=== PATIENT | male | born 1970 | race Caucasian/White ===

== ENCOUNTER 2019-03-31 20:02 | Emergency (ER) | payer SELFPAY ==
[~2019-03-31] VITALS: Ht 160 cm; Wt 117.0 kg
--- NOTE | 2019-03-31 20:05 | NUR ---
PT AMBULATED IN [facility]
[2019-03-31 20:07] VITALS: BP 153/130
--- NOTE | 2019-03-31 20:14 | NUR ---
PT C/O WORSENING ANXIETY X 1 MONTH. DENIES SEEING PSYCHIATRIST/PSYCHOLOGIST CURRENTLY AND STATES HE HAS INCREASED STRESS FROM A NEW POSITION AT WORK. DENIES CP/SOB/NVD. HX--ANXIETY MEDS---NONE
--- NOTE | 2019-03-31 20:24 | NUR ---
Dr. Gomez evaluating patient
--- NOTE | 2019-03-31 20:27 | NUR ---
[facility]MD [facility]
[2019-03-31] MEDS ORDERED: LORazepam 1 MG TAB PO ONE (20:35)
[2019-03-31 20:57] VITALS: BP 142/79
== END 2019-03-31 20:57 | disposition home or self-care (01) ==
LOC: MED 20:02
DX: F41.9 Anxiety disorder, unspecified (principal); Z88.0 Allergy status to penicillin
CPT/HCPCS: 99284